=== PATIENT | male | born 1995 ===

== ENCOUNTER 2016-07-02 16:03 | Emergency (ER) | payer OTHER, MEDICAID ==
[2016-07-02 16:20] VITALS: RESP 18
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
[2016-07-02 19:36] VITALS: BP 125/83; PULSE 96; TEMP 98.7
[2016-07-02 19:45] VITALS: O2SAT 99
== END 2016-07-02 19:30 | disposition home or self-care (01) ==
LOC: H.ER 16:03
DX: F07.81 Postconcussional syndrome (principal); R51 Headache; M62.830 Muscle spasm of back; V49.49XA Driver injured in collision with other motor vehicles in traffic accident, initial encounter; Y93.9 Activity, unspecified